=== PATIENT | female | born 1950 | race Caucasian/White ===

== ENCOUNTER 2020-10-04 09:05 | Outpatient (CLI) | payer MEDICARE ==
[~2020-10-04] VITALS: Ht 157 cm; Wt 72.0 kg
[2020-10-04 08:58] VITALS: BP 151/64
[2020-10-04] MEDS ORDERED: EPINEPHrine INJECTION 1 MG/ML AMP IM PRN (09:15)
[2020-10-04] MEDS ORDERED: BAMLANIVIMAB 700 MG in NS 200 ML IV ONE (09:15)
[2020-10-04] MEDS ORDERED: diphenhydrAMINE 50 MG/ML INJ (BENADRYL) IV PRN (09:15)
[2020-10-04 10:50] VITALS: BP 136/54
== END 2020-10-04 11:50 ==
LOC: INFUSION 09:05
PROVIDERS: ATTEND Nurse Practitioner Family
DX: U07.1 COVID-19 (principal); N18.9 Chronic kidney disease, unspecified